=== PATIENT | female | born 1980 | race Caucasian/White ===

== ENCOUNTER 2019-11-22 09:44 | Outpatient (CLI) | payer OTHER, SELFPAY ==
[2019-11-22 10:41] LABS: Add Urine Microscopic? YES; Appearance Urine Clear (Clear); Bilirubin Urine Negative (Negative); Blood Urine Negative (Negative); Color Urine Yellow (Yellow); Glucose Urine UA Negative (Negative); Ketones Urine Negative (Negative); Leukocyte Esterase Ur Negative LEU/UL (NEGATIVE); Mucus Urine Few /lpf; Nitrate Urine Negative (Negative); Protein Urine 2+ mg/dL (Negative); Specific Grav Ur 1.026 (1.001-1.035); Squamous Epithelial Cell Urine Occasional /hpf (Few); Urobilinogen Urine Negative mg/dL (<2.0); WBC Urine 0-3 /hpf (0-3)
[2019-11-22 10:56] LABS: Blood Urea Nitrogen 12 mg/dL (7-17); Calcium 8.6 mg/dL (8.4-10.2); Carbon Dioxide 26 mmol/L (22-30); Chloride 107 mmol/L (98-107); Estimated Glomerular Filt Rate > 60; Glucose 91 mg/dL (65-105); Potassium 4.2 mmol/L (3.4-5.0); Sodium 138 mmol/L (137-145)
[2019-11-22 11:45] LABS: Creatinine Urine 230.6 mg/dL
[2019-11-22 12:10] LABS: MALB Creatinine Ratio 188.2 mg/g (0-30)
== END 2019-11-22 09:45 | disposition home or self-care (01) ==
PROVIDERS: PCP Family Medicine; Visit Provider Internal Medicine Nephrology
DX: R80.9 Proteinuria, unspecified (principal); R31.29 Other microscopic hematuria
CPT/HCPCS: 36415; 80048; 81001; 82043

== ENCOUNTER 2019-11-22 14:50 | Emergency (ER) | payer OTHER, SELFPAY ==
--- NOTE | ~2019-11-22 | CT_ITS ---
EXAMINATION: CT abdomen pelvis wo con DATE: 11/22/2019 16:33 INDICATION: Abdominal and right flank pain, history of left nephrectomy TECHNIQUE: Computed tomography (CT) of the abdomen and pelvis was performed without intravenous contr ast. The dose-length product (DLP) was 1286.09 mGy-cm. Automated exposure control and iterative recon struction technique were employed. COMPARISON: 09/20/2017 FINDINGS: Minimal dependent atelectasis is present in the lung bases. The heart size is normal. The g allbladder is surgically absent. There is mild enlargement of the common bile duct and central intrah epatic ducts which is likely due to post cholecystectomy state. The liver, spleen, pancreas, and adre nal glands are normal. The previously described cystic lesion in the uncinate process of the pancreas is not well demonstrated given the absence of intravenous contrast. The right kidney is unremarkable . No stones are identified in the kidney, ureter, or bladder. No pathologically enlarged abdominal or pelvic lymph nodes are identified. There is no free intraperitoneal gas or evidence of bowel obstruc tion. The appendix is normal. An IUD is noted in the uterus. IMPRESSION: 1. No CT correlate for the patient's symptoms. Reviewed, dictated and finalized at location A.
[2019-11-22 14:57] VITALS: BP 167/111; PULSE 68; RESP 18; TEMP 36.9; O2SAT 99
--- NOTE | 2019-11-22 15:12 | ED.FEMALEGU ---
HPI - Female Genitourinary General Chief complaint: Urogenital-Female Stated complaint: Multiple Complaints Time Seen by Provider: 11/22/19 15:11 Source: patient Mode of arrival: ambulatory Limitations: no limitations History of Present Illness HPI Narrative: Patient is a 39-year-old female with a history of Wilms tumor, solitary kidney, who presents for evaluation of hematuria, right-sided flank pain. Patient denies any dysuria, hesitancy or frequency. She states she has daily hematuria. Patient denies fever or chills, reports nausea without vomiting. Patient follows with Dr. Adkins and was instructed to come to the emergency department due to her flank pain. Pain is described as dull, aching in nature in the right flank without radiation to the right lower abdomen. No suprapubic pain. Related Data Home Medications Medication Instructions Recorded Confirmed Fish Oil 11/22/19 11/22/19 famotidine 11/22/19 lisinopril 11/22/19 loratadine mg 11/22/19 omeprazole 11/22/19 sumatriptan succinate mg PO 11/22/19 Allergies Allergy/AdvReac Type Severity Reaction Status Date / Time bee venom protein (honey bee) Allergy Unknown Swelling Verified 11/22/19 15:06 bupropion Allergy Unknown Headache Verified 11/22/19 15:06 citalopram Allergy Unknown Itching Verified 11/22/19 15:06 Review of Systems Review of Systems: Narrative: CONSTITUTIONAL: Denies fever, chills, or sweats. EYES: Denies visual changes ENT: Denies rhinorrhea, congestion CARDIOVASCULAR: Denies chest pain, palpitations, or edema. RESPIRATORY: Denies cough or dyspnea. GASTROINTESTINAL: Denies abdominal pain, reports nausea GENITOURINARY: Reports hematuria SKIN: Denies rash or itching. MUSCULOSKELETAL: Reports flank pain, denies joint pain, or myalgia. NEUROLOGIC: Denies headache, numbness, or weakness. [facility] Past Medical History Medical History (Updated 11/22/19 @ 17:00 by Rosie Wilson MD) Anxiety Hematuria Migraine Wilms' tumor Surgical History Surgical History (Updated 11/22/19 @ 15:26 by Rosie Wilson MD) History of nephrectomy, left History of tonsillectomy Hx of cholecystectomy Social History Social History (Updated 11/22/19 @ 15:25 by Rosie Wilson MD) Smoking status: Never smoker Substance use: never Gender identity (if verbalized by the patient): Female Exam Narrative: Exam Narrative: GENERAL: Awake, alert, conversant HEAD: Normocephalic, atraumatic. EYES: PERRLA and EOMI. ENT: Nares clear, no rhinorrhea or epistaxis. Mucous membranes moist. NECK: Supple. CHEST: No respiratory distress, breathing even and non labored HEART: Regular rate, sinus rhythm ABDOMEN:Non distended, non tender EXTREMITIES: Normal range of motion. No edema. SKIN: Warm, dry, no rash. NEURO:No focal deficits. Alert and oriented x3 Course Vital Signs Vital signs: Vital Signs Temperature 36.9 C 11/22/19 14:57 Pulse Rate 68 11/22/19 14:57 Respiratory Rate 18 11/22/19 14:57 Blood Pressure 167/111 H 11/22/19 14:57 Pulse Oximetry 99 11/22/19 14:57 Temperature 36.9 C 11/22/19 14:57 Pulse Rate 62 11/22/19 17:39 Respiratory Rate 15 11/22/19 17:39 Blood Pressure 164/87 H 11/22/19 17:39 Pulse Oximetry 99 11/22/19 17:39 MDM - Female Genitourinary MDM Narrative Medical decision making narrative: Patient presented for evaluation of right flank pain in the setting of single solitary kidney. Patient's abdomen is soft without significant pain or signs of surgical abdomen on serial exams. Lab and imaging evaluations are reviewed and patient is felt to be a reasonable candidate for outpatient management. No acute kidney injury. No UTI. CT findings show no acute intra-abdominal pathology. Patient felt improved following IV fluids, Tylenol, antiemetic. Patient was instructed as to limitations of imaging and lab evaluation and encouraged to return to the emergency department her primary physician for repeat ex
--- NOTE | 2019-11-22 15:15 | ECG_ITS ---
Measurements Intervals [place] Rate: 61 P: -8 CO: 138 QRS: 24 QRSD: 90 T: 30 QT: 408 QTc: 412 Interpretive Statements SINUS RHYTHM WITH SINUS ARRHYTHMIA ST ELEVATION IN ANTEROLAT/INF LEADS- PROBABLY EARLY REPOLARIZATION BORDERLINE ECG Electronically Signed On 11-22-2019 16:51:52 CDT by Vikram Donnelly D.O.
[2019-11-22] MEDS: SODIUM CHLORIDE 0.9% IV 1,000 ML 999 ML IV CONT (15:17)
[2019-11-22 15:36] LABS: Basophils Absolute Auto 0.1 K/mm3 (0.0-0.1); Eosinophils Absolute Auto 0.2 K/mm3 (0-0.3); Eosinophils Percent Auto 2.5 % (0-4.4); Immature Granulocyte Absolute 0.02 K/mm3 (0.00-0.031); Immature Granulocyte Percent A 0.2 % (0-0.5); Lymphocytes Percent Auto 45.2 % (18.3-44.2); Mean Corpuscular HGB Conc 33.3 g/dl (32-36); Mean Corpuscular Hemoglobin 30.1 pg (26-34); Mean Corpuscular Volume 90.3 fl (80-100); Monocytes Absolute Auto 0.7 K/mm3 (0.1-0.6); Monocytes Percent Auto 7.7 % (2.6-8.5); Neutrophils Absolute Auto 3.9 K/mm3 (1.3-6.7); Neutrophils Percent Auto 43.4 % (45.5-73.1); Platelet Count Result 247 k/mm3 (150-375); Red Blood Count 4.32 M/mm3 (4.2-5.4); Red Cell Distribution Width 13.6 % (11.5-14.5); White Blood Count 9.1 K/mm3 (4.5-10.0)
[2019-11-22] MEDS: ONDANSETRON INJ 4 MG/2 ML VIAL IV PUSH (15:40)
[2019-11-22 15:52] LABS: Add Urine Microscopic? YES; Appearance Urine Clear (Clear); Bilirubin Urine Negative (Negative); Blood Urine 2+ (Negative); Color Urine Yellow (Yellow); Glucose Urine UA Negative (Negative); Ketones Urine Negative (Negative); Leukocyte Esterase Ur Negative LEU/UL (Negative); Mucus Urine Rare /lpf; Nitrate Urine Negative (Negative); Protein Urine 2+ mg/dL (Negative); Specific Grav Ur 1.015 (1.001-1.035); Squamous Epithelial Cell Urine Occasional /hpf (Few); Urobilinogen Urine Negative mg/dL (<2.0); WBC Urine 0-3 /hpf
[2019-11-22 16:18] LABS: Alanine Aminotransferase 58 U/L (4-35); Albumin Level 4.3 g/dL (3.5-5.1); Alkaline Phosphatase 76 U/L (38-126); Aspartate Amino Transferase 50 U/L (14-36); Bilirubin,Total 0.6 mg/dL (0.2-1.3); Blood Urea Nitrogen 10 mg/dL (7-17); Calcium 8.9 mg/dL (8.4-10.2); Carbon Dioxide 22 mmol/L (22-30); Chloride 108 mmol/L (98-107); Estimated CRCL calculation 140 ml/min; Estimated Glomerular Filt Rate > 60; Glucose 86 mg/dL (65-105); Potassium 4.4 mmol/L (3.4-5.0); Sodium 135 mmol/L (137-145)
[2019-11-22] MEDS: METOCLOPRAMIDE HCL 10 MG TABLET PO (16:38)
[2019-11-22 17:39] VITALS: BP 164/87; PULSE 62; RESP 15; O2SAT 99
== END 2019-11-22 18:00 | disposition home or self-care (01) ==
PROVIDERS: Emergency Provider Emergency Medicine; PCP Family Medicine
DX: R11.0 Nausea (principal); E86.0 Dehydration; R94.31 Abnormal electrocardiogram [ECG] [EKG]; Z90.5 Acquired absence of kidney; Z85.53 Personal history of malignant neoplasm of renal pelvis
CPT/HCPCS: 36415; 74176; 80048; 80053; 81001; 81025; 82043; 85025; 93005; 96361; 96374; 99284; A9270; J2405; J7030

== ENCOUNTER 2020-02-10 13:13 | Outpatient (CLI) | payer OTHER, SELFPAY ==
[2020-02-10 14:05] LABS: Add Urine Microscopic? YES; Anion Gap 11.2 mmol/L (7-16); Appearance Urine Clear (Clear); Bacteria Urine Trace /hpf; Bilirubin Urine Negative (Negative); Blood Urea Nitrogen 13 mg/dL (7-17); Blood Urine 2+ (Negative); Calcium 8.8 mg/dL (8.4-10.2); Carbon Dioxide 25 mmol/L (22-30); Chloride 105 mmol/L (98-107); Color Urine Straw (Yellow); Estimated Glomerular Filt Rate > 60; Glucose 106 mg/dL (65-105); Glucose Urine UA Negative (Negative); Ketones Urine Negative (Negative); Leukocyte Esterase Ur Negative LEU/UL (NEGATIVE); Mucus Urine Rare /lpf; Nitrate Urine Negative (Negative); Potassium 4.2 mmol/L (3.4-5.0); Protein Urine 1+ mg/dL (Negative); Sodium 137 mmol/L (137-145); Specific Grav Ur 1.016 (1.001-1.035); Squamous Epithelial Cell Urine Few /hpf (Few); Urobilinogen Urine Negative mg/dL (<2.0); WBC Urine 0-3 /hpf (0-3)
[2020-02-10 16:09] LABS: MALB Creatinine Ratio 156.3 mg/g (0-30); Microalbumin Urine Random 145.4 mg/L (0-16.7)
== END 2020-02-10 13:14 | disposition home or self-care (01) ==
LOC: ANHLAB 13:16
PROVIDERS: PCP Family Medicine; Visit Provider Internal Medicine Nephrology
DX: R80.9 Proteinuria, unspecified (principal); R31.29 Other microscopic hematuria
CPT/HCPCS: 36415; 80048; 81001; 82043

== ENCOUNTER 2020-07-01 11:50 | Emergency (ER) | payer OTHER, SELFPAY ==
[2020-07-01 11:54] VITALS: BP 149/101; PULSE 79; RESP 16; TEMP 37.1; O2SAT 100
--- NOTE | 2020-07-01 13:06 | ED.URI ---
HPI - URI/Sore Throat General Chief Complaint: Upper Respiratory Infection Stated Complaint: ST, cough, congestion Time Seen by Provider: 07/01/20 12:00 Source: patient Mode of arrival: ambulatory Limitations: no limitations History of Present Illness HPI Narrative: Patient is a 39-year-old female who presents with 2 days duration of sore throat congestion rhinorrhea body aches and minimally productive cough on arrival patient is in no distress does not appear uncomfortable patient has not been seen for this complaint patient has not taken anything for her symptoms Related Data Home Medications Medication Instructions Recorded Confirmed Fish Oil 11/22/19 11/22/19 famotidine 11/22/19 lisinopril DAILY 11/22/19 loratadine mg 11/22/19 omeprazole DAILY 11/22/19 sumatriptan succinate mg PO PRN 11/22/19 Allergies Allergy/AdvReac Type Severity Reaction Status Date / Time bee venom protein (honey bee) Allergy Unknown Swelling Verified 07/01/20 12:24 bupropion Allergy Unknown Headache Verified 07/01/20 12:24 citalopram Allergy Unknown Itching Verified 07/01/20 12:24 Review of Systems Review of Systems: All systems reviewed & are unremarkable except as noted in HPI and below PMFSH Past Medical History Medical History Anxiety Hematuria Migraine Wilms' tumor Surgical History Surgical History History of nephrectomy, left History of tonsillectomy Hx of cholecystectomy Social History Social History Smoking status: Never smoker Substance use: never Gender identity (if verbalized by the patient): Female Exam Narrative: Exam Narrative: GENERAL: Well-appearing, well-nourished, and in no acute distress. HEAD: Normocephalic, atraumatic. EYES: PERRLA and EOMI. ENT: Nares clear, no rhinorrhea or epistaxis. CHEST: Clear to auscultation. No respiratory distress. No wheezes rales or rhonchi HEART: Regular rate and rhythm. No murmur heard. EXTREMITIES: Normal range of motion. No edema. SKIN: Warm, dry, no rash. NEURO: No focal deficits. Alert and oriented x3. PSYCH: Normal mood and affect. Course Course Emergency Course: Patient in the room in no distress has been tested for strep rapid test was negative will have culture performed swab for Covid will follow with her primary care to obtain these results aware that her primary care doctor is the only one that can get there is results for her patient is afebrile nontoxic-appearing no distress normal vital signs Vital Signs Vital signs: Vital Signs Temperature 98.7 F 07/01/20 11:54 Pulse Rate 79 07/01/20 11:54 Respiratory Rate 16 07/01/20 11:54 Blood Pressure 149/101 H 07/01/20 11:54 Pulse Oximetry 100 07/01/20 11:54 Temperature 98.7 F 07/01/20 11:54 Pulse Rate 79 07/01/20 11:54 Respiratory Rate 16 07/01/20 11:54 Blood Pressure 149/101 H 07/01/20 11:54 Pulse Oximetry 100 07/01/20 11:54 MDM - URI/Sore Throat MDM Narrative Medical decision making narrative: Patient with upper respiratory infection for 2 days hemodynamically stable ABCs intact patient felt appropriate for outpatient reevaluation given reasons to return felt appropriate for outpatient reevaluation by primary care will self quarantine until she has received her results Lab Data Labs: Lab Results 07/01/20 Range/Units 12:27 SARS-CoV-2 RNA (RT-PCR) Pending Strep Screen Presumptive Negative *(Reference Range: Negative)* Discharge Plan Discharge Clinical Impression: Upper respiratory infection Patient Disposition: Home, Self-Care Condition: Stable Instructions: Antibiotic Form, COVID-19 (Coronavirus Disease 2019) (ED) Additional Instructions: Follow up with your primary care provider within 2 days to set u
[2020-07-01 19:55] LABS: SARS-CoV-2 RNA PCR Negative
== END 2020-07-01 13:22 | disposition home or self-care (01) ==
PROVIDERS: Emergency Medicine Emergency Medical Services; Emergency Provider Emergency Medicine; PCP Family Medicine
DX: J06.9 Acute upper respiratory infection, unspecified (principal); Z20.828 Contact with and (suspected) exposure to other viral communicable diseases; F41.9 Anxiety disorder, unspecified; Z90.5 Acquired absence of kidney
CPT/HCPCS: 87081; 87635; 87880; 99283; C9803; U0003

== ENCOUNTER 2020-07-09 10:03 | Emergency (ER) | payer OTHER, SELFPAY ==
[2020-07-09 10:17] VITALS: BP 151/97; PULSE 68; RESP 16; TEMP 36.3; O2SAT 98
--- NOTE | 2020-07-09 10:21 | ED.HA ---
HPI - Headache General Chief Complaint: Headache Stated Complaint: headaches Source: patient Mode of arrival: ambulatory Limitations: no limitations History of Present Illness HPI Narrative: Patient is a 39-year-old female who presents with multiple complaints. Patient reports intermittent headache for 10 days, sore throat, congestion, body aches and intermittent fever. Patient was seen on 07/01 in the emergency department, Covid testing and strep was negative. Patient reports she continues to feel bad and at times worse. She reports taking Tylenol with little to no relief. Patient reports she is unable to take ibuprofen because of previous nephrectomy. She also reports that she is using Flonase and loratadine as instructed without relief. She reports a history of migraines and has taken sumatriptan as directed. MD elicited complaint: other (Upper respiratory symptoms) Related Data Home Medications Medication Instructions Recorded Confirmed Fish Oil 11/22/19 11/22/19 famotidine 11/22/19 lisinopril DAILY 11/22/19 loratadine mg 11/22/19 omeprazole DAILY 11/22/19 sumatriptan succinate mg PO PRN 11/22/19 albuterol sulfate INHALATION 07/09/20 sumatriptan succinate mg PO 07/09/20 Allergies Allergy/AdvReac Type Severity Reaction Status Date / Time bee venom protein (honey bee) Allergy Unknown Swelling Verified 07/01/20 12:24 bupropion Allergy Unknown Headache Verified 07/01/20 12:24 citalopram Allergy Unknown Itching Verified 07/01/20 12:24 Review of Systems Review of Systems: Narrative: CONSTITUTIONAL: Denies fever, chills, or sweats. Reports generalized body aches EYES: Denies visual changes, redness, or discharge. ENT: Reports s rhinorrhea, congestion, and sore throat.. CARDIOVASCULAR: Denies chest pain, palpitations, or edema. RESPIRATORY: Denies cough or dyspnea. GASTROINTESTINAL: Denies abdominal pain, nausea, vomiting, or diarrhea. GENITOURINARY: Denies dysuria or hematuria. SKIN: Denies rash or itching. MUSCULOSKELETAL: Denies back pain, joint pain, or myalgia. NEUROLOGIC: Reports headache, denies numbness, dizziness, or weakness. PSYCHIATRIC: Denies anxiety or depression. [facility] Past Medical History Medical History Anxiety Depression GERD (gastroesophageal reflux disease) Hematuria Migraine Pancreatitis Seasonal allergies Wilms' tumor Surgical History Surgical History History of nephrectomy, left History of tonsillectomy Hx of cholecystectomy Family History Family History (Updated 07/09/20 @ 10:45 by ALCIRA Cates) Other No significant family history Social History Social History Smoking status: Never smoker Substance use: never Gender identity (if verbalized by the patient): Female Exam Narrative: Exam Narrative: GENERAL: Well-appearing, well-nourished, and in no acute distress. HEAD: Normocephalic, atraumatic. EYES: No redness or drainage. ENT: Mucous membranes pink and moist. Nares clear. No rhinorrhea. TMs normal bilaterally. Throat normal. Uvula midline. NECK: AROM. Supple. No lymphadenopathy. CHEST: No respiratory distress. EXTREMITIES: Normal range of motion. SKIN: Warm, dry, no rash. NEURO: No focal deficits. Alert and oriented x3. Gait steady. PSYCH: Normal affect. No signs of depression or anxiety. Course Vital Signs Vital signs: Vital Signs Temperature 36.3 C L 07/09/20 10:17 Pulse Rate 68 07/09/20 10:17 Respiratory Rate 16 07/09/20 10:17 Blood Pressure 151/97 H 07/09/20 10:17 Pulse Oximetry 98 07/09/20 10:17 Temperature 36.3 C L 07/09/20 10:17 Pulse Rate 68 07/09/20 10:17 Respiratory Rate 16 07/09/20 10:17 Blood Pressure 151/97 H 07/09/20 10:17 Pulse Oximetry 98 07/09/20 10:17 MDM - Headache MDM Narrative Medical decision making na
== END 2020-07-09 10:49 | disposition home or self-care (01) ==
PROVIDERS: Emergency Provider Nurse Practitioner; PCP Family Medicine
DX: B34.9 Viral infection, unspecified (principal); R51.9 Headache, unspecified; T78.40XA Allergy, unspecified, initial encounter; Z20.828 Contact with and (suspected) exposure to other viral communicable diseases; K21.9 Gastro-esophageal reflux disease without esophagitis; Z90.5 Acquired absence of kidney
CPT/HCPCS: 99211; G0463; U0003

== ENCOUNTER 2020-07-09 11:13 | Outpatient (NON) | payer OTHER, SELFPAY ==
[2020-07-10 18:38] LABS: SARS-CoV-2 RNA PCR Negative
== END 2020-07-09 11:14 ==
LOC: ANHCOVIDDT 11:14
PROVIDERS: PCP Family Medicine; Visit Provider Nurse Practitioner
DX: J06.9 Acute upper respiratory infection, unspecified (principal); Z20.828 Contact with and (suspected) exposure to other viral communicable diseases
CPT/HCPCS: 87635; C9803; U0003

== ENCOUNTER 2020-11-07 22:13 | Emergency (ER) | payer OTHER, SELFPAY ==
[2020-11-07 22:14] VITALS: BP 147/88; PULSE 107; RESP 20; TEMP 36.2; O2SAT 95
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
[2020-11-07] MEDS: NEOMYCIN/POLYMYXIN/BACITRACIN OINTMENT PACKET 1 PACKET (23:14)
--- NOTE | 2020-11-07 23:15 | PC.NURSE ---
Burn dressing to fingers.
[2020-11-07 23:26] VITALS: BP 138/71; PULSE 92; RESP 18
== END 2020-11-07 23:20 | disposition home or self-care (01) ==
LOC: ANHED 23:30
PROVIDERS: Emergency Provider Emergency Medicine; PCP Family Medicine
DX: T23.241A Burn of second degree of multiple right fingers (nail), including thumb, initial encounter (principal); T31.0 Burns involving less than 10% of body surface; F41.9 Anxiety disorder, unspecified; F32.9 Major depressive disorder, single episode, unspecified; K21.9 Gastro-esophageal reflux disease without esophagitis; Z90.5 Acquired absence of kidney; X19.XXXA Contact with other heat and hot substances, initial encounter; Y93.G2 Activity, grilling and smoking food
CPT/HCPCS: 16020; 99283

== ENCOUNTER 2020-12-27 18:47 | Emergency (ER) | payer OTHER, SELFPAY ==
--- NOTE | ~2020-12-27 | XR_ITS ---
XR foot RT min 3V DATE: 12/27/2020 19:35 INDICATION: Fall. Right foot pain, bruising of third metatarsal area and third digit TECHNIQUE: 4 views COMPARISON: None FINDINGS: There is mild osteoarthritis at the first metatarsophalangeal joint. No fracture, dislocation, periosteal reaction or bone destruction. Mild posterior calcaneal enthesopathy. 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
[2020-12-27 19:01] VITALS: BP 136/89; PULSE 100; RESP 17; TEMP 36.4; O2SAT 99
--- NOTE | 2020-12-27 20:04 | ED.LOWEXIN ---
HPI - Extremity Injury (Lower) General Chief Complaint: Extremity Injury, Lower Stated Complaint: right foot injury Time Seen by Provider: 12/27/20 19:49 Source: patient Mode of arrival: ambulatory Limitations: no limitations History of Present Illness HPI Narrative: This is a 40-year-old female that presents the emergency department for right foot pain after an injury 4 days ago. Reports she slipped down a couple of steps. Reports she has had swelling, bruising and pain in the area since. Reports decreased range of motion due to pain. Denies hitting her head, loss of consciousness, other injuries, or numbness. Related Data Home Medications Medication Instructions Recorded Confirmed Fish Oil 11/22/19 11/22/19 famotidine 11/22/19 lisinopril DAILY 11/22/19 loratadine mg 11/22/19 omeprazole DAILY 11/22/19 sumatriptan succinate mg PO PRN 11/22/19 albuterol sulfate INHALATION 07/09/20 sumatriptan succinate mg PO 07/09/20 Allergies Allergy/AdvReac Type Severity Reaction Status Date / Time bee venom protein (honey bee) Allergy Unknown Swelling Verified 07/01/20 12:24 bupropion Allergy Unknown Headache Verified 07/01/20 12:24 citalopram Allergy Unknown Itching Verified 07/01/20 12:24 Review of Systems Review of Systems: Narrative: CONSTITUTIONAL: Denies fever MUSCULOSKELETAL: Reports joint pain, and myalgia. NEUROLOGIC: Denies numbness All systems reviewed & are unremarkable except as noted in HPI and below PMFSH Past Medical History Medical History Anxiety Depression GERD (gastroesophageal reflux disease) Hematuria Migraine Pancreatitis Seasonal allergies Wilms' tumor Surgical History Surgical History History of nephrectomy, left History of tonsillectomy Hx of cholecystectomy Family History Family History (Updated 07/09/20 @ 10:45 by ALCIRA Cates) Other No significant family history Social History Social History Smoking status: Never smoker Substance use: never Gender identity (if verbalized by the patient): Female Exam Narrative: Exam Narrative: GENERAL: Well-appearing, well-nourished, and in no acute distress. HEAD: Normocephalic, atraumatic. EYES: EOMI. EXTREMITIES: Normal range of motion. Mild edema about the right foot dorsal surface about the 1st-3rd metatarsals with bruising to the area. Normal DP pulses. Normal sensation SKIN: Warm, dry, no rash. NEURO: No focal deficits. Alert and oriented x3. PSYCH: Normal mood and affect Course Vital Signs Vital signs: Vital Signs Temperature 97.5 F L 12/27/20 19:01 Pulse Rate 100 12/27/20 19:01 Respiratory Rate 17 12/27/20 19:01 Blood Pressure 136/89 12/27/20 19:01 Pulse Oximetry 99 12/27/20 19:01 Temperature 97.5 F L 12/27/20 19:01 Pulse Rate 100 12/27/20 19:01 Respiratory Rate 17 12/27/20 19:01 Blood Pressure 136/89 12/27/20 19:01 Pulse Oximetry 99 12/27/20 19:01 MDM - Extremity Injury (Lower) MDM Narrative Medical decision making narrative: Patient presents to the emergency department for right foot pain after an injury 4 days ago. Right foot x-ray is without acute osseous abnormalities. Patient placed in postop shoe for comfort. Instructed to rest, ice and take [id number] pain medication as needed. She is to follow-up with primary care doctor. 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
== END 2020-12-27 20:24 | disposition home or self-care (01) ==
LOC: ANHED 20:09
PROVIDERS: Emergency Provider Emergency Medicine; PCP Family Medicine
DX: S90.31XA Contusion of right foot, initial encounter (principal); K21.9 Gastro-esophageal reflux disease without esophagitis; Z90.5 Acquired absence of kidney; M19.071 Primary osteoarthritis, right ankle and foot; M77.31 Calcaneal spur, right foot; W10.9XXA Fall (on) (from) unspecified stairs and steps, initial encounter
CPT/HCPCS: 73630; 99283

== ENCOUNTER 2021-01-01 08:44 | Outpatient (CLI) | payer OTHER, SELFPAY ==
--- NOTE | 2021-01-25 09:18 | WPDHOMESLEEP ---
Sleep Study - Home Unattended Date of Study: 01/01/21 Ordering Provider: Adina Greene, Interpreting Provider: Vidhya Guerin MD Home Sleep Study Type: Apnea Link Air Height: 1.69 m Weight: 117.934 kg Body Mass Index: 41.3 Neck Circumference (inches): 17.5 Trinity: 14 Reason for Sleep Study Hypersomnolence, morning migraines Sleep History Mary Ruelas is a 40-year-old woman who rarely awakens from sleep feeling short of breath. She occasionally awakens at night with heartburn, belching and coughing. She rarely snores and rarely snores loudly enough that others complain about it. She rarely has trouble sleeping with a cold. She does not wake up gasping for breath at night. She rarely has breathing problems at night observed by others. She occasionally sweats excessively at night, occasionally notices her heart pounding or beating irregularly at night. She occasionally falls asleep during the day occasionally falls asleep involuntarily but never falls asleep while driving. She does not fall asleep while exerting physical effort. She rarely has loss of muscle tone with strong emotion. She occasionally has daytime difficulties due to excessive sleepiness. She occasionally feels paralyzed on waking or falling asleep. She occasionally has vivid dreamlike scenes upon awakening or falling asleep. She does not feel afraid to go to sleep. She occasionally has nightmares. She rarely remembers her dreams. She frequently has racing thoughts. She occasionally feels sad or depressed. She frequently has anxiety. She occasionally has muscular tension and notices parts of her body jerking. She rarely kicks at night and rarely has crawling or aching feelings in her legs. She rarely has any kind of leg pain during the night. She does not have morning jaw pain. She frequently grinds her teeth during sleep. She occasionally has bothered by pain during the day. She rarely is awakened by pain at night. She frequently wakes up feeling stiff in the morning. She occasionally wakes up with sore achy muscles and pain in the neck and spine. She has nightmares dizziness fatigue and depression. She has concentration difficulties. She frequently awakens feeling refreshed. Normal bedtime is between 10:30 p.m. and 11:00 p.m., falling asleep in a relatively short amount of time. She rarely wakes at night. When she does awakes she will urinate, get a drink and if she if she has difficulty going back to sleep she watches television or plays games. She wakes in the morning between 6 and 7:00 a.m.. On weekends, bedtime is later, 11:00 p.m. till 1:00 a.m. and she wakes between 6 and 8:00 a.m.. She estimates getting between 6 and 8 hours of sleep at night. she sometimes takes naps. A short nap is not refreshing. When she does nap a nap last between 1-3 hours. She feels better in the afternoon compared to the morning Habits: Cigarettes 4th to 1 pack per day. Caffeine 1-3 servings a day. Occasional alcohol. No recreational drugs. [facility] Past Medical History Medical History Anxiety Depression GERD (gastroesophageal reflux disease) Hematuria Migraine Pancreatitis Seasonal allergies Wilms' tumor Surgical History Surgical History History of nephrectomy, left History of tonsillectomy Hx of cholecystectomy Family History Family History (Updated 07/09/20 @ 10:45 by ALCIRA Cates) Other No significant family history Social History Social History Smoking status: Never smoker Substance use: never Gender identity (if verbalized by the patient): Female Medications Home Medications Medication Instructions Recorded Confirmed Type Fish Oil 11/22/19 11/22/19 History acetaminophen 500 mg PO Q6H PRN #30 cap 11/22/19 Rx famotidine 11/22/19 History
[2021-01-25 09:30] VITALS: BMI 41.3
== END 2021-01-04 12:04 | disposition home or self-care (01) ==
LOC: ANHCSM 08:46
PROVIDERS: PCP Family Medicine; Visit Provider Family Medicine
DX: G47.33 Obstructive sleep apnea (adult) (pediatric) (principal); G47.10 Hypersomnia, unspecified
CPT/HCPCS: 95806

== ENCOUNTER 2021-10-06 16:14 | Outpatient (CLI) | payer OTHER, SELFPAY ==
[2021-10-06 16:59] LABS: Alanine Aminotransferase 54 U/L (4-35); Albumin Level 4.3 g/dL (3.5-5.1); Alkaline Phosphatase 86 U/L (38-126); Anion Gap 9 mmol/L (8-16); Aspartate Amino Transferase 37 U/L (14-36); Bilirubin,Total 0.5 mg/dL (0.2-1.3); Blood Urea Nitrogen 12 mg/dL (7-17); Calcium 8.8 mg/dL (8.4-10.2); Carbon Dioxide 24 mmol/L (22-30); Chloride 106 mmol/L (98-107); Estimated Glomerular Filt Rate > 60; Glucose 92 mg/dL (65-110); Potassium 3.9 mmol/L (3.4-5.0); Sodium 139 mmol/L (137-145)
== END 2021-10-06 16:15 | disposition home or self-care (01) ==
LOC: ANHLAB 16:26
PROVIDERS: PCP Physician Assistant; Visit Provider Physician Assistant
DX: B34.9 Viral infection, unspecified (principal)
CPT/HCPCS: 36415; 80053

== ENCOUNTER 2022-01-07 11:58 | Outpatient (CLI) | payer OTHER, SELFPAY ==
[2022-01-07 12:58] LABS: Appearance Urine Clear (Clear); Bilirubin Urine Negative (Negative); Blood Urine 1+ (Negative); Color Urine Yellow (Yellow); Glucose Urine UA Negative (Negative); Ketones Urine Negative (Negative); Leukocyte Esterase Ur Trace LEU/UL (NEGATIVE); Nitrate Urine Negative (Negative); Protein Urine Trace mg/dL (Negative); Urobilinogen Urine 0.2 mg/dL (<2.0)
[2022-01-07 13:03] LABS: Creatinine Urine 30.4 mg/dL
[2022-01-07 13:06] LABS: MALB Creatinine Ratio 393.1 mg/g (0-30); Microalbumin Urine Random 119.5 mg/L (0-16.7)
[2022-01-07 13:10] LABS: Bacteria Urine Trace /hpf; Mucus Urine Rare /lpf; RBC Urine 0-2 /hpf (0-2); Squamous Epithelial Cell Urine Occasional /hpf (Few); WBC Urine 0-3 /hpf (0-3)
[2022-01-07 13:15] LABS: Add Urine Microscopic? YES
[2022-01-07 22:53] LABS: Anion Gap 6 mmol/L (8-16); Blood Urea Nitrogen 13 mg/dL (7-17); Calcium 8.8 mg/dL (8.4-10.2); Carbon Dioxide 24 mmol/L (22-30); Chloride 108 mmol/L (98-107); Estimated Glomerular Filt Rate > 60; Glucose 95 mg/dL (65-110); Sodium 138 mmol/L (137-145)
== END 2022-01-07 11:59 | disposition home or self-care (01) ==
LOC: ANHLAB 12:00
PROVIDERS: PCP Physician Assistant; Visit Provider Internal Medicine Nephrology
DX: R80.9 Proteinuria, unspecified (principal)
CPT/HCPCS: 36415; 80048; 81001; 82043

== ENCOUNTER 2022-04-06 11:52 | Outpatient (CLI) | payer OTHER, SELFPAY ==
--- NOTE | ~2022-04-06 | US_ITS ---
EXAMINATION: US venous doppler [facility] DATE: 04/06/2022 12:43 INDICATION: Bilateral lower limb pain TECHNIQUE: Nathan scale images without and with compression and Doppler images of the bilateral lower e xtremity veins were obtained. COMPARISON: None FINDINGS: The right common femoral vein, profunda femoral vein, femoral vein, popliteal vein, peroneal trunk, p osterior tibial veins, and greater saphenous vein are patent. The left common femoral vein, profunda femoral vein, femoral vein, popliteal vein, peroneal trunk, po sterior tibial veins, and greater saphenous vein are patent. IMPRESSION: 1. Patent bilateral lower extremity veins. No evidence of deep venous thrombosis. Reviewed, dictated and finalized at location A. IMPRESSION: 1. Patent bilateral lower extremity veins. No evidence of deep venous thrombosi s.
== END 2022-04-06 11:53 | disposition home or self-care (01) ==
PROVIDERS: PCP Physician Assistant; Visit Provider Podiatrist Foot & Ankle Surgery
DX: I82.401 Acute embolism and thrombosis of unspecified deep veins of right lower extremity (principal)
CPT/HCPCS: 93970

== ENCOUNTER 2022-04-20 08:15 | Outpatient (RCR) | payer OTHER, SELFPAY ==
--- NOTE | 2022-02-23 09:14 | PTOPEVAL ---
PHYSICAL THERAPY INITIAL EVALUATION. Thank you for referring Mary Ruelas to [facility] [place] The patient is scheduled to be seen for therapy? 1x/week for 4 weeks. Please review, sign, date and return this plan of care TYLER. I agree with and certify that the following plan of care is medically necessary. Referring Physician Date Attending Provider: Shaina Khoury, DPM *PT Outpatient Evaluation Start: 02/23/22 Evaluation Information Diagnosis Achilles tendonitis Subjective Information Pt states her R ankle started Query Text:As Reported By Patient/ hurting a couple of months ago Family without a known reason as to why. Pt states she has a bone spur on her heel. She states the worst pain is in the morning and it is achy and tight throughout the rest of the day. She states she does ankle circles prior to standing and this helps. Diagnostic Tests X-Rays For This Problem Yes: heel spur Pain Assessment Right Heel(s) Reported Pain Level 2 Pain Description Pulling,Sharp Pain Frequency Acute Lowest Pain Intensity 0 Greatest Pain Intensity 5 Pain Aggravating Factors Walking,Weight Bearing/ Standing Lower Extremity Range of Motion Ankle/Foot Range of Motion Right Ankle Dorsiflexion With Knee Extension -14 active Ankle Dorsiflexion With Knee Extension -5 passive Ankle Dorsiflexion With Knee Flexed -10 active Ankle Dorsiflexion With Knee Flexed 0 passive Ankle Plantarflexion Range of Motion - 75 active Ankle Eversion Range of Motion - Active 8 Ankle Eversion Range of Motion - Passive 14 Ankle Inversion Range of Motion - Active 32 Ankle Inversion Range of Motion -passive 38 Left Ankle Dorsiflexion With Knee Extension 0 active Ankle Dorsiflexion With Knee Extension 10 passive Ankle Dorsiflexion With Knee Flexed -4 active Ankle Dorsiflexion With Knee Flexed 8 passive Ankle Plantarflexion Range of Motion - 70 active Ankle Eversion Range of Motion - Active 10 Ankle Eversion Range of Motion - Passive 15 Ankle Inversion Range of Motion - Active 15 Ankle Inversion Range of Motion -passive 30 Passive Lower Extremity Muscle Strength Testing Gross Lower Extremity Strength enda ankle dorsiflexion, inversion, eversion grossly 5/5 - able to perform range single leg heel raise edna, 3/5 ankle plantarflexion Posture Ankle/Foot Posture
--- NOTE | 2022-03-17 11:54 | PCPTNOTE ---
Late entry Documentation for 03/09/22- soft tissue along achilles tendon and gastroc region to decreased tissue restriction and pain - passive ankle stretching in all planes in supine position. Unable to edit previous note from 03/09/22. Manual was billed and performed this date for treatment.
--- NOTE | 2022-03-23 09:05 | PTOPPROG ---
Assessment and note entered by Aixa Somers, PT, DPT Evaluation Information Assessment Status Progress Diagnosis R Achilles tendonitis Subjective Information Pt states her medial ankle/calf is sore today and this feel like muscle soreness. She states she still has heel pain but this decreased in frequency and intensity. Pt reports 40% improvement in overall symptoms. She states she has been trying an ankle brace, compression socks, and muscle rub. Pt states she has been wearing an ankle brace for the last 2 months but does not wear this to therapy. Assessment PT Clinical Summary Mary presents to therapy today for her progress report following 4 visits of skilled therapy. Today she demonstrates improved active and passive dorsiflexion, but both continue to be decreased from normal. She continue to have increased plantarflexion strength edna. Today she also demonstrates tenderness to palpation along her distal medial calf. Continuation of skilled physical therapy services are indicated to address the remaining deficits, to improve strength, to limit pain, and to return to baseline function. Plan of Care Interventions Electrical Stimulation,Gait Training,Hot Pack/Cold Pack,Manual Therapy,Neuro Re-education, Therapeutic Activities,Therapeutic Exercise, Ultrasound PT Services Indicated Yes Treatment Frequency and 1x/wk for 4 wks Duration These treatments will address the objective and functional deficits as defined above. The patient will be advanced safely and appropriately in order for the patient to progress towards his/her prior level of function. Additional exercises will be introduced and as well as a comprehensive home exercise program upon discharge, if needed, ?to ensure carryover of functional gains achieved in the clinic. This treatment plan has been reviewed and agreement upon by the patient.
--- NOTE | 2022-04-20 08:55 | PTOPDC ---
Assessment and note entered by Aixa Somers, PT, DPT Evaluation Information Assessment Status Discharge Diagnosis R Achilles tendonitis Subjective Information Pt states she is doing alright. She states her pain moved from her calf to the insertion of her Achilles. She states the tenderness is starting to ease up. Pt reports 85% improvement in overall symptoms. Pt states she can stand for an hour prior to the pain starting. Pt reports poor complaince with her HEP. Reported Pain Level Pain Score 0: Self Report Assessment PT Clinical Summary Mary presents to therapy today for her progress report following 8 visits of therapy to treat her Achilles tendonitis. Today she reports poor compliance with her HEP. She demonstrates strength and ROM that is near equal edna. She has made minimal progress with her ROM since her last evaluation. She has met or progressed towards all of her therapy goals. She will be discharged from skilled therapy services at this time with instructions to continue her HEP upon discharge and to follow up with her referring provider if needed. Plan of Care Treatment Frequency and to be discharged Duration
== END 2022-04-27 09:07 | disposition home or self-care (01) ==
LOC: ANHGOSHPT 08:15
PROVIDERS: PCP Physician Assistant; Visit Provider Podiatrist Foot & Ankle Surgery
DX: M76.61 Achilles tendinitis, right leg (principal)
CPT/HCPCS: 97035; 97110; 97112; 97140; 97161; 97530

== ENCOUNTER 2022-05-03 08:30 | Outpatient (RCR) | payer OTHER, SELFPAY ==
[2022-03-01 14:35] VITALS: BMI 42.0
[2022-03-01 15:33] VITALS: BMI 42.0
[2022-05-03 09:12] VITALS: BMI 41.8
[2022-05-03 09:13] VITALS: BMI 41.8
== END 2022-05-17 08:49 | disposition home or self-care (01) ==
LOC: ANHDMC 08:30
PROVIDERS: PCP Physician Assistant; Visit Provider Physician Assistant
DX: E66.01 Morbid (severe) obesity due to excess calories (principal); Z68.41 Body mass index [BMI] 40.0-44.9, adult; Z71.3 Dietary counseling and surveillance
CPT/HCPCS: 97802; 97803

== ENCOUNTER 2022-07-13 14:55 | Outpatient (CLI) | payer OTHER, SELFPAY ==
[2022-07-13 15:55] LABS: Anion Gap 5 mmol/L (8-16); Blood Urea Nitrogen 16 mg/dL (7-17); Carbon Dioxide 28 mmol/L (22-30); Chloride 103 mmol/L (98-107); Estimated Glomerular Filt Rate > 60; Glucose 110 mg/dL (65-110); Potassium 3.9 mmol/L (3.4-5.0); Sodium 136 mmol/L (137-145)
== END 2022-07-13 14:56 | disposition home or self-care (01) ==
PROVIDERS: PCP Physician Assistant; Visit Provider Internal Medicine Nephrology
DX: I10 Essential (primary) hypertension (principal)
CPT/HCPCS: 36415; 80048

== ENCOUNTER 2022-08-18 13:27 | Emergency (ER) | payer OTHER, SELFPAY ==
[2022-08-18 13:37] VITALS: BP 137/94; PULSE 72; RESP 16; TEMP 36.3; O2SAT 100
--- NOTE | 2022-08-18 14:20 | ED.FEMALEGU ---
HPI - Female Genitourinary General Chief complaint: Urogenital-Female Stated complaint: UTI Time Seen by Provider: 08/18/22 14:11 Source: patient Mode of arrival: ambulatory Limitations: no limitations History of Present Illness HPI Narrative: Patient presents today complaining of a 3 day history of suprapubic pain extending to the right low back with urinary frequency, malodorous urine, with mild dysuria that started this morning. History of left nephrectomy and chronic hematuria. Related Data Home Medications Medication Instructions Recorded Confirmed Fish Oil 11/22/19 11/22/19 lisinopril 2.5 mg tablet DAILY 11/22/19 loratadine 10 mg tablet mg 11/22/19 albuterol sulfate 90 mcg/actuation inhalation 07/09/20 aerosol inhaler sumatriptan succinate 25 mg tablet mg PO 07/09/20 atorvastatin 40 mg tablet mg 08/18/22 levonorgestrel 21 mcg/24 hours (8 1 device intrauterine ONCE 08/18/22 08/18/22 yrs) 52 mg intrauterine device (Mirena) ondansetron HCl 8 mg tablet mg 08/18/22 08/18/22 Allergies Allergy/AdvReac Type Severity Reaction Status Date / Time bee venom protein (honey bee) Allergy Unknown Swelling Verified 08/18/22 13:41 bupropion Allergy Unknown Headache Verified 08/18/22 13:41 citalopram Allergy Unknown Itching Verified 08/18/22 13:41 Review of Systems Review of Systems: CONSTITUTIONAL: Denies body aches, fever, chills, or sweats. EYES: Denies visual changes, redness, or discharge. ENT: Denies rhinorrhea, congestion, sore throat, or otalgia. CARDIOVASCULAR: Denies chest pain, palpitations, or edema. RESPIRATORY: Denies cough or dyspnea. GASTROINTESTINAL: Denies abdominal pain, nausea, vomiting, or diarrhea. GENITOURINARY: + dysuria, suprapubic pain, urinary frequency, malodorous urine SKIN: Denies rash, itching, or wounds. MUSCULOSKELETAL: Denies joint pain, or myalgia.+ right low back pain NEUROLOGIC: Denies headache, numbness, tingling, or weakness. PSYCH: Denies depression or anxiety. [facility] Past Medical History Medical History Anxiety Depression GERD (gastroesophageal reflux disease) Hematuria Migraine Pancreatitis Seasonal allergies Wilms' tumor Surgical History Surgical History History of nephrectomy, left History of tonsillectomy Hx of cholecystectomy Family History Family History Other No significant family history Social History Social History Smoking status: Never smoker Substance use: never Gender identity (if verbalized by the patient): Female Spiritual care concerns: No Comments At time of signature, I have reviewed and agree with nursing past medical, surgical, social and family history unless otherwise noted. Please see nursing chart for further information. There is no relevant family history pertinent to the presenting complaint Exam Narrative: GENERAL: Well-appearing, well-nourished, and in no acute distress. HEAD: Normocephalic, atraumatic. EYES: EOMI. No redness or drainage. Conjunctivae normal. ENT: Mucous membranes pink and moist. NECK: Normal AROM. CHEST: No respiratory distress. Clear to auscultation. HEART: Regular rate and rhythm. No murmur appreciated. ABDOMEN: Soft, nondistended, normal active bowel sounds.+ suprapubic tenderness MUSCULOSKELETAL: No bony tenderness of the spine. Right low lumbar tenderness EXTREMITIES: Normal range of motion. No edema. SKIN: Warm, dry, no rash. Capillary refill normal. Normal skin turgor. NEURO: No focal deficits. Alert and oriented x3. Gait steady. PSYCH: Normal affect. No signs of depression or anxiety. Course Course Level of Care: Express Care Visit Vital Signs Vital signs: Vital Signs Temperature 97.4 F L 08/18/22 13:37 Pulse Rate 72
== END 2022-08-18 14:27 | disposition home or self-care (01) ==
PROVIDERS: Emergency Provider Nurse Practitioner; PCP Physician Assistant
DX: N30.01 Acute cystitis with hematuria (principal); K21.9 Gastro-esophageal reflux disease without esophagitis; Z85.528 Personal history of other malignant neoplasm of kidney; Z90.5 Acquired absence of kidney
CPT/HCPCS: 81003; 87086; 87088; 99213; G0463

== ENCOUNTER 2022-10-15 09:34 | Outpatient (CLI) | payer OTHER, SELFPAY ==
--- NOTE | ~2022-10-15 | MR_ITS ---
MRI of the right ankle Clinical history: Achilles tendinitis Technique: Coronal proton-density and proton-density fat-sat images, axial proton-density and proton- density fat-sat images, and sagittal proton-density and proton-density fat-sat images were acquired. Findings: Syndesmotic ligaments are intact. Posterior talofibular ligament is intact. Calcaneofibular ligament is probably hyperintense ill-defined. Anterior talofibular ligament not clearly visualized, there is some technical/motion artifact. Deltoid ligament is intact. Medial flexor tendons, peroneal tendons, anterior extensor tendons are intact. There is moderate tend inosis of the distal Achilles tendon, which is thickened and hyperintense. No definite partial or ful l-thickness tear identified. There is no osteochondral lesion of the talar dome. There is focal fluid distention of the retrocalca jose bursa with mild edema in the posterior calcaneal tuberosity. Remaining bone marrow signals are e ssentially unremarkable. Plantar fascia intact. Normal signal preserved in the sinus Tarsi. Impression: Moderate distal Achilles tendinosis. 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 Reviewed, dictated and finalized at location . Impression: Moderate distal Achilles tendinosis. Associated findings of retrocalcaneal burs itis and amorphous marrow edema in the posterior calcaneal tuberosity are consi stent with Yoav's syndrome. 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
== END 2022-10-15 09:35 | disposition home or self-care (01) ==
PROVIDERS: PCP Physician Assistant; Visit Provider Podiatrist Foot & Ankle Surgery
DX: M76.61 Achilles tendinitis, right leg (principal)
CPT/HCPCS: 73721

== ENCOUNTER 2022-10-27 12:59 | Outpatient (RCR) | payer OTHER, SELFPAY ==
[2022-10-27 13:41] VITALS: BMI 41.1
[2022-10-27 13:42] VITALS: BMI 41.1
== END 2023-01-16 12:11 | disposition home or self-care (01) ==
LOC: ANHDMC 12:59
PROVIDERS: PCP Physician Assistant; Visit Provider Physician Assistant
DX: E66.01 Morbid (severe) obesity due to excess calories (principal); Z68.41 Body mass index [BMI] 40.0-44.9, adult; Z71.3 Dietary counseling and surveillance
CPT/HCPCS: 97803

== ENCOUNTER 2023-01-12 09:00 | Outpatient (CLI) | payer OTHER, SELFPAY ==
[2023-01-12 11:34] LABS: Appearance Urine Clear (Clear); Bacteria Urine None Seen /hpf; Bilirubin Urine Negative (Negative); Blood Urine 1+ (Negative); Color Urine Yellow (Yellow); Glucose Urine UA Negative (Negative); Ketones Urine Negative (Negative); Leukocyte Esterase Ur Negative LEU/UL (Negative); Nitrate Urine Negative (Negative); Non Pathogenic Casts 0-2; Protein Urine Negative (Negative); RBC Urine 0-2 /hpf (0-2); Specific Grav Ur 1.009 (1.001-1.035); Squamous Epithelial Cell Urine None seen /hpf (Few); Urobilinogen Urine 0.2 mg/dL (<2.0); WBC Urine 0-5 /hpf; pH Urine 5.5 (5.0-9.0)
[2023-01-12 11:41] LABS: Anion Gap 4 mmol/L (8-16); Blood Urea Nitrogen 13 mg/dL (7-17); Calcium 9.2 mg/dL (8.4-10.2); Carbon Dioxide 27 mmol/L (22-30); Chloride 107 mmol/L (98-107); Estimated Glomerular Filt Rate > 60; Glucose 103 mg/dL (65-110); Potassium 4.4 mmol/L (3.4-5.0); Sodium 138 mmol/L (137-145)
[2023-01-12 11:42] LABS: Add Urine Microscopic? YES
[2023-01-12 12:02] LABS: Creatinine Urine 47.9 mg/dL
[2023-01-12 12:07] LABS: MALB Creatinine Ratio 111.9 mg/g (0-30); Microalbumin Urine Random 53.6 mg/L (0-16.7)
== END 2023-01-12 09:01 | disposition home or self-care (01) ==
LOC: ANHLAB 10:43
PROVIDERS: PCP Physician Assistant; Visit Provider Internal Medicine Nephrology
DX: R80.9 Proteinuria, unspecified (principal); Z90.5 Acquired absence of kidney
CPT/HCPCS: 36415; 80048; 81001; 82043

== ENCOUNTER 2023-05-13 11:52 | Outpatient (CLI) | payer OTHER, SELFPAY ==
[2023-05-13 14:14] LABS: Appearance Urine Clear (Clear); Bacteria Urine Rare /hpf; Bilirubin Urine Negative (Negative); Blood Urine 2+ (Negative); Color Urine Yellow (Yellow); Glucose Urine UA Negative (Negative); Ketones Urine Negative (Negative); Leukocyte Esterase Ur Trace LEU/UL (NEGATIVE); Nitrate Urine Negative (Negative); Non Pathogenic Casts 0-2; Protein Urine 1+ mg/dL (Negative); Specific Grav Ur 1.017 (1.001-1.035); Squamous Epithelial Cell Urine Occasional /hpf (Few); Urobilinogen Urine 0.2 mg/dL (<2.0); pH Urine 5.5 (5.0-9.0)
[2023-05-13 14:16] LABS: Add Urine Microscopic? YES
== END 2023-05-13 11:53 | disposition home or self-care (01) ==
LOC: ANHLAB 11:54
PROVIDERS: PCP Physician Assistant; Visit Provider Internal Medicine Nephrology
DX: N39.0 Urinary tract infection, site not specified (principal)
CPT/HCPCS: 81001; 87086; 87088

== ENCOUNTER 2023-06-14 08:17 | Emergency (ER) | payer OTHER, SELFPAY ==
[2023-06-14] VITALS (43 sets, daily range): BP systolic 128–150; BP diastolic 73–90; PULSE 52–79; RESP 12–22; TEMP 36.3; O2SAT 97–100
--- NOTE | 2023-06-14 08:26 | ECG_ITS ---
Measurements Intervals [place] Rate: 56 P: -6 [place]: 135 QRS: 31 QRSD: 83 T: 30 QT: 408 QTc: 396 Interpretive Statements SINUS BRADYCARDIA EARLY REPOLARIZATION [ST ELEVATION WITH NORMALLY INFLECTED T WAVE] COMPARED TO ECG 11/22/2019 15:04:01 SINUS BRADYCARDIA NOW PRESENT Electronically Signed On 06-14-2023 12:08:17 FITTING ROOM SUPERVISOR by Janine Mcgrath M.D.
--- NOTE | 2023-06-14 08:41 | ED.GENADULT ---
HPI - General Adult General Chief complaint: Syncope Stated complaint: dizzy lightheaded on monday Time Seen by Provider: 06/14/23 08:20 History of Present Illness HPI narrative: 42-year-old female presenting to the emergency department for evaluation of lightheaded dizziness and some intermittent chest pain since Monday. Patient reports she had a short episode on Monday where she had intense lightheaded and dizziness. Patient denies any loss of consciousness. Patient reports the episode of short lasting it is but that she still does continue to have some generalized tiredness and fatigue. Patient states she is also having some intermittent left-sided chest pain. Patient does have a history of a Wilms tumor. Patient denies any previous cardiac history. Patient states he did have a stress test approximately 5 years ago and denies ever having an Angiocath. Related Data Home Medications Medication Instructions Recorded Confirmed Fish Oil 11/22/19 11/22/19 lisinopril 2.5 mg tablet DAILY 11/22/19 loratadine 10 mg tablet mg 11/22/19 albuterol sulfate 90 mcg/actuation inhalation 07/09/20 aerosol inhaler sumatriptan succinate 25 mg tablet mg PO 07/09/20 atorvastatin 40 mg tablet mg 08/18/22 levonorgestrel 21 mcg/24 hours (8 1 device intrauterine ONCE 08/18/22 08/18/22 yrs) 52 mg intrauterine device (Mirena) ondansetron HCl 8 mg tablet mg 08/18/22 08/18/22 Allergies Allergy/AdvReac Type Severity Reaction Status Date / Time bee venom protein (honey bee) Allergy Unknown Swelling Verified 06/14/23 08:20 bupropion Allergy Unknown Headache Verified 06/14/23 08:20 citalopram Allergy Unknown Itching Verified 06/14/23 08:20 COVID-19 (SARS-CoV-2) Allergy Swelling Verified 06/14/23 08:41 vaccine, henri Review of Systems Review of Systems: All systems reviewed & are unremarkable except as noted in HPI and below PMFSH Past Medical History Medical History Anxiety Depression GERD (gastroesophageal reflux disease) Hematuria Migraine Pancreatitis Seasonal allergies Wilms' tumor Surgical History Surgical History History of nephrectomy, left History of tonsillectomy Hx of cholecystectomy Family History Family History Other No significant family history Social History Social History Smoking status: Never smoker Substance use: never Gender identity (if verbalized by the patient): Female Spiritual care concerns: No Exam Narrative: APPEARANCE: Well appearing, no pain, no distress, well-nourished. HEAD: normocephalic, atraumatic. EYES: PERRLA/EOMI, conjunctivae clear. NOSE: Normal no drainage EARS:TMS clear with good light reflex. THROAT: Pharynx clear, no exudate. NECK: Supple. No adenopathy, no masses. RESPIRATORY: Airway patent, respirations nonlabored. Clear to auscultation bilaterally, no rales, rhonchi, wheezing. CARDIOVASCULAR: Regular rate and rhythm without murmurs rubs or gallops. ABDOMINAL: Soft, nontender, nondistended, normal bowel sounds MUSCULOSKELETAL: Moves all extremities. Strength/ROM intact, No edema, No calf tenderness. NEURO: Alert. Cranial nerves II through XII intact. Good gait. Good coordination SKIN: Warm, dry. Normal Color Course Course Emergency Course: 42-year-old female presented the ED for evaluation after having some lightheaded and dizziness on Monday. Patient was having intermittent chest pain. Patient was afebrile with no leukocytosis and a stable hemoglobin. No significant abnormalities on the CMP and patient had negative serial troponins. Patient was negative for influenza RSV and for COVID. Patient does feel improved with treatment. Patient was encouraged of close follow-up with her primary care physician.
[2023-06-14 08:45] LABS: Basophils Absolute Auto 0.1 K/mm3 (0.0-0.1); Basophils Percent Auto 0.7 % (0.2-1.2); Eosinophils Absolute Auto 0.2 K/mm3 (0-0.3); Eosinophils Percent Auto 2.4 % (0-4.4); Hematocrit 38.7 % (37.0-47.0); Hemoglobin 12.6 g/dL (12.0-15.0); Immature Granulocyte Absolute 0.03 K/mm3 (0.00-0.031); Immature Granulocyte Percent A 0.4 % (0-0.5); Lymphocytes Absolute Auto 3.18 K/mm3 (0.9-3.2); Lymphocytes Percent Auto 37.9 % (18.3-44.2); Mean Corpuscular HGB Conc 32.6 g/dl (32-36); Mean Corpuscular Hemoglobin 30.2 pg (26-34); Mean Corpuscular Volume 92.8 fl (80-100); Mean Platelet Volume 10.6 fl (7.4-10.4); Monocytes Absolute Auto 0.7 K/mm3 (0.1-0.6); Monocytes Percent Auto 8.8 % (2.6-8.5); Neutrophils Absolute Auto 4.2 K/mm3 (1.3-6.7); Neutrophils Percent Auto 49.8 % (45.5-73.1); Platelet Count Result 212 k/mm3 (150-375); Red Blood Count 4.17 M/mm3 (4.2-5.4); Red Cell Distribution Width 13.9 % (11.5-14.5); White Blood Count 8.4 K/mm3 (4.5-10.0)
[2023-06-14 08:57] LABS: Alanine Aminotransferase 34 U/L (6-35); Alkaline Phosphatase 86 U/L (38-126); Anion Gap 8 mmol/L (8-16); Aspartate Amino Transferase 26 U/L (14-36); Bilirubin,Total 0.6 mg/dL (0.2-1.3); Blood Urea Nitrogen 18 mg/dL (7-17); Carbon Dioxide 23 mmol/L (22-30); Chloride 108 mmol/L (98-107); Estimated CRCL calculation 105 ml/min; Estimated Glomerular Filt Rate > 60; Glucose 103 mg/dL (65-110); Potassium 4.2 mmol/L (3.4-5.0); Sodium 139 mmol/L (137-145)
[2023-06-14 09:09] LABS: Troponin I < 0.012 ng/mL (0.000-0.034)
[2023-06-14 09:10] LABS: D Dimer 0.33 ug/mL (<0.48)
[2023-06-14 09:21] LABS: Influenza A QL RT-PCR Negative (Negative); Influenza B QL RT-PCR Negative (Negative); RSV RNA, RT-PCR Negative (Negative); SARS-CoV-2 RNA PCR Negative (Negative)
[2023-06-14 11:58] LABS: Troponin I < 0.012 ng/mL (0.000-0.034)
== END 2023-06-14 12:38 | disposition home or self-care (01) ==
PROVIDERS: Emergency Provider Emergency Medicine; PCP Physician Assistant
DX: R42 Dizziness and giddiness (principal); R07.9 Chest pain, unspecified; Z20.822 Contact with and (suspected) exposure to COVID-19; K21.9 Gastro-esophageal reflux disease without esophagitis; Z97.5 Presence of (intrauterine) contraceptive device; Z90.49 Acquired absence of other specified parts of digestive tract; Z90.5 Acquired absence of kidney; R00.1 Bradycardia, unspecified
CPT/HCPCS: 36415; 80053; 81025; 84484; 85025; 85380; 87637; 93005; 99284

== ENCOUNTER 2023-07-12 12:30 | Outpatient (RCR) | payer OTHER, SELFPAY ==
--- NOTE | 2023-06-12 10:11 | PTOPEVAL1 ---
Assessment and note entered by Aixa Somers, PT, DPT Evaluation Information Assessment Status Evaluation Diagnosis L foot plantar fascitis (M72.2) Onset 3-4 months Subjective Information Pt arrived 10 mins late for her evaluation this date. Pt states this time she is here for her L foot, she reports also having R foot issues in the past. She states the longer she is standing or walking around her foot will swell. She states it feels like her foot is on fire and there is a large bump on the bottom of her heel. She states her pain gets so bad she cannot stand at times. She states she has been avoiding walking to limit her foot pain. 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 Reported Pain Level Pain Score 2: Self Report Assessment PT Clinical Summary Mary presents to therapy today for her initial evaluation with a diagnosis of L side plantar fascitis. Today she demonstrates decreased active and passive ROM edna, her R > L. D/t her ROM limitations but ambulates with an asymmetrical pattern with a heavy heel strike on her L. She also has hip weakness edna. Skilled therapy services are indicated to address the deficits noted above, to manage pain, and to improve functional mobility. Plan of Care Interventions Electrical Stimulation,Gait Training,Hot Pack/Cold Pack,Intermittent Compression,Manual Therapy, Neuro Re-education,Patient/Caregiver Educati, Therapeutic Activities,Therapeutic Exercise, Ultrasound PT Services Indicated Yes Treatment Frequency and 2x/wk for 8 visits Duration These treatments will address the objective and functional deficits as defined above. The patient will be advanced safely and appropriately in order for the patient to progress towards his/her prior level of function. Additional exercises will be introduced and as well as a comprehensive home exercise program upon discharge, if needed, ?to ensure carryover of functional gains achieved in the clinic. This treatment plan has been reviewed and agreement upon by the patient.
--- NOTE | 2023-06-12 10:11 | OPREHPOC ---
Outpatient Therapy Plan of Care This is a Multidisciplinary Plan of Care that may contain components documented by all disciplines (PT, OT, and ST.) PT Problem 1 PT Problem #1 Knowledge Deficit PT Goal 1 Goal Pt to be IND with issued HEP Target Visit 8 PT Problem 2 PT Problem #2 Pain PT Goal 1 Goal Pt to report foot pain no greater than 3/10 in the last week. Target Visit 8 PT Goal 2 Goal Pt to report 75% improvement in overall symptoms. Target Visit 8 PT Problem 3 PT Problem #3 Impaired Gait PT Goal 1 Goal Pt to demonstrate symmetrical stride length during gait Target Visit 8 PT Goal 2 Goal Pt to improve 2 min walk distance from 350 ft to 400ft Target Visit 8 PT Problem 4 PT Problem #4 Impaired Range of Motion PT Goal 1 Goal Pt to improve R ankle ROM to equal to L ankle Target Visit 8
--- NOTE | 2023-06-14 16:04 | PCPTNOTE ---
Patient no call no show for today's appointment.
--- NOTE | 2023-07-12 16:42 | PTOPDC ---
Assessment and note entered by Aixa Somers, PT, DPT Evaluation Information Assessment Status Discharge Diagnosis L foot plantar fascitis (M72.2) Onset 3-4 months Subjective Information Pt states she saw the foot doctor today, she states she was told to try the inserts for 2-3 months and if they do not help she will need surgery. Pt states she has improved her foot/ankle flexibility since starting therapy. Reported Pain Level Pain Score 1: Self Report Assessment PT Clinical Summary Mary presents to therapy today for her progress report following 8 visits of therapy to treat her diagnosis of L side plantar fascitis. Today she demonstrates improved ankle ROM and strength compared to her initial visit, as well as improved LE alignment during gait. She has made small improvements in her pain reports. Pt would like to be discharged at this time to continue her HEP on her own, she is also moving about 30 minutes away next week.
== END 2023-07-13 08:05 | disposition home or self-care (01) ==
LOC: ANHGOSHPT 12:30
PROVIDERS: PCP Physician Assistant
DX: M72.2 Plantar fascial fibromatosis (principal)
CPT/HCPCS: 97016; 97035; 97110; 97140; 97161; 97530; 99199

== ENCOUNTER 2025-02-14 18:42 | Emergency (ER) | payer MEDICAID, SELFPAY ==
--- NOTE | 2025-02-14 18:44 | ED.FEMALEGU ---
HPI - Female Genitourinary General Chief complaint: Urogenital-Female Stated complaint: urinary irritation Time Seen by Provider: 02/14/25 19:03 Source: patient, RN notes reviewed and old records reviewed Mode of arrival: ambulatory Limitations: no limitations History of Present Illness HPI Narrative: 44-year-old female presents to the [facility] with intermittent urgency, frequency, discomfort with urination, right lower back pain since this morning. States it is not all the time. Patient has an IUD Onset (ago): hour(s) Related Data Home Medications ?Medication ?Instructions ?Recorded ?Confirmed ?Last Taken ?Type Fish Oil 11/22/19 08/09/23 Unknown History loratadine 10 mg tablet mg 11/22/19 08/09/23 Unknown History albuterol sulfate 90 mcg/actuation inhalation 07/09/20 08/09/23 Unknown History aerosol inhaler sumatriptan succinate 25 mg tablet mg PO 07/09/20 08/09/23 Unknown History atorvastatin 40 mg tablet mg 08/18/22 08/09/23 Unknown History levonorgestrel (Mirena) 1 device intrauterine ONCE 08/18/22 08/09/23 Unknown History ondansetron HCl 8 mg tablet mg 08/18/22 08/09/23 Unknown History sertraline 50 mg tablet 50 mg PO DAILY 08/09/23 08/09/23 Unknown History Allergies Allergy/AdvReac Type Severity Reaction Status Date / Time bee venom protein (honey bee) Allergy Unknown Swelling Verified 02/14/25 18:43 bupropion Allergy Unknown Headache Verified 02/14/25 18:43 citalopram Allergy Unknown Itching Verified 02/14/25 18:43 COVID-19 (SARS-CoV-2) Allergy Swelling Verified 02/14/25 18:43 vaccine, henri Review of Systems Review of Systems: All systems reviewed & are unremarkable except as noted in HPI and below Constitutional: Constitutional: Reports no additional constitutional complaints ENT: Reports system reviewed and no additional complaints, except as documented Cardiovascular: Cardiovascular: Reports no additional cardiovascular complaints, Denies chest pain and Denies dyspnea Respiratory: Respiratory: Reports no additional respiratory complaints, Denies chest congestion, Denies cough and Denies dyspnea Genitourinary: Genitourinary: Reports as per HPI Musculoskeletal: Musculoskeletal: Reports no additional musculoskeletal complaints Integumentary/Breasts: Skin/Breast: Reports system reviewed and no additional complaints, except as docu [facility] Past Medical History Medical History Depression GERD (gastroesophageal reflux disease) Pancreatitis Seasonal allergies Anxiety Migraine Hematuria Wilms' tumor Surgical History Surgical History Hx of cholecystectomy History of tonsillectomy History of nephrectomy, left Family History Family History Other No significant family history Social History Social History Smoking packs per day: 1 Smoking cigarettes per day: 20.0 Years smoked: 25 Smoking pack-years: 25.00 Smoking status: Current every day smoker Tobacco type: cigarettes Alcohol intake: current Drinks per week: 1 Substance use: never Substance use type: does not use Gender identity (if verbalized by the patient): Female Spiritual care concerns: No Comments At the time of my signature, I reviewed and agree with the nursing past medical, surgical, social, and family history. There is no relevant family history pertinent to the patient complaint. Exam Const: General: cooperative, healthy appearing, comfortable, no acute distress, well developed, alert and well nourished Nutritional Appearance: well nourished and obese Orientation/consciousness: patient oriented x3 Limitations: no limitations HENMT: Head: normal to inspection Eyes: General: appearance normal, both eyes and all related structures Alignment and Position: alignment normal Neck: Neck: normal visual inspection, full ROM, no lymphadenopathy and no meningeal signs Chest: Chest palpation & inspection: normal inspection of the chest Resp: Effort & Inspection: normal respiratory effort and able to speak in complete sentences Auscultation: clear to auscultation bilaterally, no crackles, no rales, no rhonchi and no wheezes Cardio: Rate: regular rate GI: GI Palp: No abdominal tenderness : General: Yes no CVA tenderness Skin: General skin exam: normal color and no rashes or lesions noted Neuro: General: patient oriented x3, gait normal, moves all extremities and no meningeal signs Cognition (Neuro): normal cognition Speech: normal speech Gait exam (Neuro): Normal gait present Extrem: General: normal to inspection, full ROM, capillary refill normal and normal gait Psych: Appearance: grossly normal and well kempt Mental Status: mental status grossly normal Speech and movement: Normal speech and movement present and Clear speech present Affect: normal affect Attitude: cooperative Course Course Level of Care: Express Care Visit Vital Signs Vital signs: Vital Signs Temperature 97.8 F 02/14/25 18:54 Pulse Rate 78 02/14/25 18:54 Respiratory Rate 16 02/14/25 18:54 Blood Pressure 130/78 02/14/25 18:54 Pulse Oximetry 98 02/14/25 18:54 Oxygen Delivery Room Air 02/14/25 18:54 Temperature 97.8 F 02/14/25 18:54 Pulse Rate 78 02/14/25 18:54 Respiratory Rate 16 02/14/25 18:54 Blood Pressure 130/78 02/14/25 18:54 Pulse Oximetry 98 02/14/25 18:54 Oxygen Delivery Room Air 02/14/25 18:54 Reviewed MDM - Female Genitourinary MDM Narrative Medical decision making narrative: Patient sitting in exam room. Patient is nontoxic, vitals stable. Patient presents with concerns for UTI. Patient has had intermittent frequency, urgency, low back pain since this morning. Patient has 1 kidney. Urine does not show signs of a UTI, previous visits for concern for UTIs did not grow out bacteria. Offered to send some cephalexin in for patient due to having 1 kidney and said the symptoms, patient would prefer to wait for the culture. Patient appropriate for outpatient treatment with close follow-up Discharge instructions reviewed with patient, as well as provided in writing per nursing staff. The instructions also include specific and strict return/GO TO THE ER as well as f/u information. All questions have been answered, and the patient deny any further questions with discharge and discharge plan. Some parts of this dictation were generated by voice recognition software and may contain typographical and/or grammatical inaccuracies. Differential Diagnosis Differential diagnosis: Likely urinary tract infection and cystitis Lab Data Labs: Lab Results 02/14/25 Range/Units 18:58 POC Urine Color Yellow POC Urine Clarity Clear POC Urine pH 6.0 POC Ur Specif Kaycee 1.020 POC Urine Protein 2+ (Negative) POC Ur Glucose (UA) 2+ (Negative) POC Urine Ketones Negative (Negative) POC Urine Blood 2+ (Negative) POC Urine Nitrite Negative (Negative) POC Urine Bilirubin Negative (Negative) POC Urine Urobilinogen 0.2 POC U Leukocyte Esteras Negative (Negative) Reviewed Critical Care Time Critical Care Time Critical Care Time: No Discharge Plan Discharge Clinical Impression: Dysuria Patient Disposition: Home Condition: Stable Instructions: Antibiotic Form, Dysuria (ED) Additional Instructions: Increased water intake Take Tylenol as needed for pain Urine did not show signs of a UTI. We do send your urine to our lab for a culture. If at that time a bacteria grows out in the culture we will call you and call in an appropriate antibiotic Follow-up with primary care For new or worsening symptoms go directly to the emergency room Patient Language: Swedish Prescriptions: No Action sumatriptan succinate 25 mg tablet PO albuterol sulfate 90 mcg/actuation HFA aerosol inhaler INHALATION ondansetron HCl 8 mg tablet atorvastatin 40 mg tablet Mirena 21 mcg/24 hours (8 yrs) 52 mg Intrauterine Device 1 device INTRAUTERINE ONCE Rx Instructions: as a single dose sertraline 50 mg tablet 50 mg PO DAILY fluticasone propionate [Flonase Allergy Relief] 50 mcg/actuation spray,suspension 2 spray intranasal DAILY Qty: 9.9 0RF Rx Instructions: administer into each nostril loratadine 10 mg tablet Fish Oil acetaminophen 500 mg capsule 500 mg PO Q6H PRN (Reason: fever or pain) Qty: 30 0RF metoprolol succinate 25 mg tablet extended release 24 hr See Rx Instructions .ROUTE .COMPLEX Qty: 45 2RF Dose Instruction: Take 1/2 (one-half) tablet by mouth once daily Rx Instructions: Take 1/2 (one-half) tablet by mouth once daily Follow-up/Referrals: UNKNOWN,DOCTOR [Non-Staff] - Time of Disposition: 19:13
[2025-02-14 18:54] VITALS: BP 130/78; PULSE 78; RESP 16; TEMP 36.6; O2SAT 98
[2025-02-14 19:02] LABS: EDUAAPPEAR Clear; EDUABILI Negative (Negative); EDUABLOOD 2+ (Negative); EDUACOLOR1 Yellow; EDUAGLUCOSE 2+ (Negative); EDUAKETONE Negative (Negative); EDUALEUKO Negative (Negative); EDUANITRATE Negative (Negative); EDUAPH 6.0; EDUAPROTEIN 2+ (Negative); EDUASPGRAVITY 1.020; EDUAUROBILI 0.2
== END 2025-02-14 19:15 | disposition home or self-care (01) ==
PROVIDERS: Emergency Provider Nurse Practitioner
DX: R30.0 Dysuria (principal); F17.210 Nicotine dependence, cigarettes, uncomplicated; K21.9 Gastro-esophageal reflux disease without esophagitis; F41.9 Anxiety disorder, unspecified; F32.A Depression, unspecified; Z85.528 Personal history of other malignant neoplasm of kidney; Z90.5 Acquired absence of kidney
CPT/HCPCS: 81003; 87086; 99213; G0463